=== PATIENT | female | born 1970 | race Caucasian/White ===

== ENCOUNTER 2024-09-01 12:39 | Outpatient (CLI) | payer OTHER | END 2024-09-01 12:42 | disposition home or self-care (01) | LOC: SONOGRAMA 12:39 | PROVIDERS: ATTEND Pathology Anatomic Pathology & Clinical Pathology | DX: D34 Benign neoplasm of thyroid gland (principal); E07.89 Other specified disorders of thyroid; E07.9 Disorder of thyroid, unspecified ==